=== PATIENT | male | born 1955 | race Caucasian/White ===

== ENCOUNTER 2017-08-09 14:21 | Outpatient (CLI) | payer OTHER | END 2017-08-09 14:33 | disposition home or self-care (01) | LOC: LAB 14:21 | DX: N39.0 Urinary tract infection, site not specified (principal); R82.79 Other abnormal findings on microbiological examination of urine ==

== ENCOUNTER 2023-06-04 12:30 | Inpatient (IN) | payer OTHER ==
[~2023-06-04] VITALS: Ht 152.4 cm; Wt 89.8 kg
[2023-06-05] MEDS ORDERED: LOSARTAN-HCTZ1 EAC1 PO (07:56)
[2023-06-05] MEDS ORDERED: SYNJARDY 12.5-1 EACH PO (07:56)
[2023-06-05] MEDS ORDERED: MOUNJARO10 MG/0.5 (07:56)
[2023-06-05] MEDS ORDERED: LOVAZA1 GM PO (07:57)
[2023-06-05] MEDS ORDERED: CRESTOR20 MG PO (07:57)
[2023-06-12] MEDS ORDERED: METRONIDAZOLE/SODIUM CHLORIDE 500 MG/100 ML PIGGYBACK IV ONE ×2 (06:38→09:00)
[2023-06-12] MEDS ORDERED: CEFTRIAXONE SODIUM 2,000 MG VIAL ONE (06:38)
[2023-06-12] MEDS ORDERED: LIDOCAINE HCL 1%/Epi 20ML VIAL IJ ONE ×2 (06:38→09:00)
[2023-06-12] MEDS ORDERED: BUPIVACAINE HCL/PF 0.25% 30ML VIAL InF ONE (06:39)
[2023-06-12] MEDS ORDERED: HUMULIN 70100 UNIT/2 (07:51)
[2023-06-12] MEDS ORDERED: CEFTRIAXONE SODIUM 2,000 MG VIAL IV ONE (09:00)
[2023-06-12] MEDS ORDERED: BUPIVACAINE HCL 30 ML VIAL IJ ONE (09:00)
[2023-06-12] MEDS ORDERED: SUGAMMADEX SODIUM 200 MG/2 ML VIAL IV ONE (10:30)
[2023-06-12] MEDS ORDERED: MORPHINE SULFATE 4 MG/ML CARTRIDGE IV PRN (11:00)
[2023-06-12] MEDS ORDERED: RINGERS SOLUTION,LACTATED 1,000 ML IV SCH (11:00)
[2023-06-12] MEDS ORDERED: ONDANSETRON HCL 2 MG/ML VIAL IV PRN (11:00)
[2023-06-12] MEDS ORDERED: OxyCODONE HCL 5 MG TABLET (ROXICODONE) PO PRN (11:00)
[2023-06-12] MEDS ORDERED: INSULIN LISPRO 1,000 UNIT/10 ML UNITS SUBCUTANEO PRN (11:30)
[2023-06-12] MEDS ORDERED: hydrALAZINE HCL 20 MG VIAL IV PRN (11:30)
[2023-06-12] MEDS ORDERED: DEXTROSE 50 % IN WATER 0.5 G/ML DISP.SYRIN IV PRN (11:30)
[2023-06-12] MEDS ORDERED: HYOSCYAMINE SULFATE 0.125 MG TAB.SUBL SL SCH (13:00)
[2023-06-12] MEDS ORDERED: SIMETHICONE 125 MG CAPSULE PO SCH (13:00)
[2023-06-12] MEDS ORDERED: ACETAMINOPHEN 500 MG GEL..CAP PO SCH (14:00)
[2023-06-12 15:35] LABS: HEMATOCRIT 25.5 % (39.0-48.0); MEAN CELL VOLUME 84.4 fL (80.0-100.00); MEAN CORPUSCULAR HGB CONC 33.2 g/dl (32.0-36.0); PLATELET COUNT 417 K/uL (150-450); RED BLOOD COUNT 3.02 M/uL (4.00-6.00)
[2023-06-12 15:36] LABS: HEMOGLOBIN 8.5 g/dL (13-16.00); MEAN CORPUSCULAR HEMOGLOBIN 28.1 pg (27.00-32.0)
[2023-06-12] MEDS ORDERED: SOD FERRIC GLUC COMPLX/SUCROSE 62.5 MG/5 ML AMPUL IV ONE (16:30)
[2023-06-12] MEDS ORDERED: AMINOCAPROIC ACID 250 MG/ML VIAL IV ONE ×3 (16:30→23:33)
[2023-06-12] MEDS ORDERED: POLYETHYLENE GLYCOL 3350 17 GM BLIST.PACK PO SCH (17:00)
[2023-06-12] MEDS ORDERED: GABAPENTIN 300 MG CAPSULE PO SCH (17:00)
[2023-06-12] MEDS ORDERED: CELECOXIB 200 MG CAPSULE PO SCH (17:00)
[2023-06-12] MEDS ORDERED: METOCLOPRAMIDE HCL 5 MG/ML VIAL IV SCH (17:00)
[2023-06-12] MEDS ORDERED: 0.9 % SODIUM CHLORIDE 1,000 ML IV SCH (17:15)
[2023-06-12] MEDS ORDERED: HETASTARCH IN 0.9 % NACL 500 ML PLAST..BAG IV ONE (17:30)
[2023-06-12] MEDS ORDERED: GABAPENTIN 300 MG CAPSULE PO ONE (17:38)
[2023-06-12] MEDS ORDERED: SIMETHICONE 125 MG CAPSULE PO ONE (17:39)
[2023-06-12] MEDS ORDERED: HYOSCYAMINE SULFATE 0.125 MG TAB.SUBL ONE (17:39)
[2023-06-12] MEDS ORDERED: METOCLOPRAMIDE HCL 5 MG/ML VIAL ONE (17:39)
[2023-06-12] MEDS ORDERED: ACETAMINOPHEN 500 MG GEL..CAP PO ONE (19:46)
[2023-06-12] MEDS ORDERED: FAMOTIDINE/PF 20 MG/2 ML VIAL IV PUSH SCH (21:00)
[2023-06-12] MEDS ORDERED: INSULIN LISPRO 1,000 UNIT/10 ML UNITS SUBCUTANEO ONE (21:29)
[2023-06-13] MEDS ORDERED: AMINOCAPROIC ACID 250 MG/ML VIAL IV SCH
[2023-06-13] MEDS ORDERED: METOCLOPRAMIDE HCL 5 MG/ML VIAL ONE (01:38)
[2023-06-13] MEDS ORDERED: GABAPENTIN 300 MG CAPSULE PO ONE (01:38)
[2023-06-13] MEDS ORDERED: ACETAMINOPHEN 500 MG GEL..CAP PO ONE ×2 (01:38→12:34)
[2023-06-13 08:26] LABS: MEAN CELL VOLUME 82.9 fL (80.0-100.00); MEAN CORPUSCULAR HGB CONC 34.9 g/dl (32.0-36.0)
[2023-06-13] MEDS ORDERED: LACTOBACILLUS ACIDOPHILUS 1 CAP CAP PO SCH (09:00)
[2023-06-13] MEDS ORDERED: LOSARTAN/HYDROCHLOROTHIAZIDE 1 UDTAB TABLET PO SCH (09:00)
[2023-06-13] MEDS ORDERED: SOD FERRIC GLUC COMPLX/SUCROSE 62.5 MG in 0.9 % SODIUM CHLORIDE 50 ML IV SCH (09:00)
[2023-06-13] MEDS ORDERED: LACTULOSE 20 G/30 ML BLIST.PACK PO SCH (09:00)
[2023-06-13 09:07] LABS: HEMATOCRIT 16.6 % (39.0-48.0); HEMOGLOBIN 5.8 g/dL (13-16.00); PLATELET COUNT 207 K/uL (150-450)
[2023-06-13] MEDS ORDERED: INSULIN LISPRO 1,000 UNIT/10 ML UNITS SUBCUTANEO ONE ×3 (09:12→16:14)
[2023-06-13 09:22] LABS: CALCIUM 7.2 mg/dL (8.5-10.1); CREATININE SERUM 1.54 mg/dL (0.70-1.30); GFR 45.15; MAGNESIUM 1.7 mg/dL (1.8-2.4); POTASSIUM 4.13 mEq/L (3.5-5.1)
[2023-06-13] MEDS ORDERED: MAGNESIUM SULFATE IN WATER 50 ML IV ONE (09:30)
[2023-06-13] MEDS ORDERED: NOREPINEPHRINE BITARTRATE 4 MG in DEXTROSE 5 % IN WATER 250 ML IV SCH (09:30)
[2023-06-13] MEDS ORDERED: SOD FERRIC GLUC COMPLX/SUCROSE 62.5 MG/5 ML AMPUL IV SCH (10:03)
[2023-06-13] MEDS ORDERED: Cyanocobalamin/Mecobalamin 1 TAB.SL SL SCH (10:09)
[2023-06-13] MEDS ORDERED: VITAMIN B COMPLEX 1 EACH PO SCH (10:09)
[2023-06-13] MEDS ORDERED: IRON FUM,PS/FOLIC ACID/VITC/B3 1 CAP CAPSULE PO SCH (10:09)
[2023-06-13] MEDS ORDERED: EPOETIN ALFA-EPBX 10,000 UNIT/ML VIAL (Retacrit) SUBCUTANEO SCH (10:15)
[2023-06-13] MEDS ORDERED: SOD FERRIC GLUC COMPLX/SUCROSE 62.5 MG/5 ML AMPUL IV ONE (10:30)
[2023-06-13] MEDS ORDERED: MULTIVIT INFUSN,ADULT 4,VIT K 10 ML VIAL IV SCH (11:20)
[2023-06-13] MEDS ORDERED: EPOETIN ALFA-EPBX 10,000 UNIT/ML 2ML VIAL SUBCUTANEO SCH (12:00)
[2023-06-13] MEDS ORDERED: EMOLLIENT COMBINATION NO.92 2.5 OZ BOTTLE TOP SCH (13:00)
[2023-06-13] MEDS ORDERED: INSULIN REGULAR, HUMAN 1,000 UNIT/10 ML UNITS ONE ×2 (16:32→17:49)
[2023-06-13] MEDS ORDERED: INSULIN REGULAR, HUMAN 1,000 UNIT/10 ML UNITS IV STA ×2 (16:35→19:27)
[2023-06-13] MEDS ORDERED: HYOSCYAMINE SULFATE 0.125 MG TAB.SUBL ONE (16:42)
[2023-06-13] MEDS ORDERED: ENOXAPARIN SODIUM 40 MG/0.4 ML SYRINGE SUBCUTANEO SCH (17:00)
[2023-06-13] MEDS ORDERED: PATIENTS OWN MEDICATION (MEDICAMENTO EN PISO) PO SCH (17:00)
[2023-06-13] MEDS ORDERED: INSULIN NPH HUMAN ISOPHANE 1,000 UNITS/10 ML UNITS SUBCUTANEO ONE (19:07)
[2023-06-13] MEDS ORDERED: INSULIN NPH HUMAN ISOPHANE 1,000 UNITS/10 ML UNITS SUBCUTANEO STA (19:31)
[2023-06-13] MEDS ORDERED: INSULIN LISPRO 1,000 UNIT/10 ML UNITS SUBCUTANEO PRN (21:45)
[2023-06-14] MEDS ORDERED: INSULIN LISPRO 1,000 UNIT/10 ML UNITS SUBCUTANEO PRN ×2 (06:15→09:00)
[2023-06-14] MEDS ORDERED: DEXTROSE 50 % IN WATER 0.5 G/ML DISP.SYRIN IV PRN (06:15)
[2023-06-14 07:20] LABS: CALCIUM 6.9 mg/dL (8.5-10.1); CREATININE SERUM 0.88 mg/dL (0.70-1.30); GFR 86.12; PHOSPHOROUS 2.8 mg/dL (2.5-4.9)
[2023-06-14 07:22] LABS: MAGNESIUM 2.3 mg/dL (1.8-2.4); POTASSIUM 4.18 mEq/L (3.5-5.1)
[2023-06-14] MEDS ORDERED: INSULIN NPH HUM/REG INSULIN HM 1,000 UNIT/10 ML UNITS SUBCUTANEO STA (08:36)
[2023-06-14] MEDS ORDERED: SOD FERRIC GLUC COMPLX/SUCROSE 62.5 MG/5 ML AMPUL IV SCH (09:00)
[2023-06-14] MEDS ORDERED: ENOXAPARIN SODIUM 40 MG/0.4 ML SYRINGE SUBCUTANEO SCH (09:00)
[2023-06-14] MEDS ORDERED: CHLORHEXIDINE GLUCONATE 120 ML BOTTLE TOP ONE (11:51)
[2023-06-14] MEDS ORDERED: CYANOCOBALAMIN (VITAMIN B-12) 1,000 MCG/ML VIAL IM SCH (12:40)
[2023-06-14] MEDS ORDERED: INSULIN NPH HUM/REG INSULIN HM 1,000 UNIT/10 ML UNITS SUBCUTANEO SCH (17:00)
[2023-06-14 18:13] LABS: MEAN CELL VOLUME 82.7 fL (80.0-100.00); MEAN CORPUSCULAR HGB CONC 33.7 g/dl (32.0-36.0); PLATELET COUNT 325 K/uL (150-450); RED BLOOD COUNT 1.78 M/uL (4.00-6.00); RED CELL DISTRIBUTION WIDTH 16.8 % (11.5-14.5)
[2023-06-14 18:18] LABS: HEMATOCRIT 14.7 % (39.0-48.0)
[2023-06-14] MEDS ORDERED: PIPERACILLIN/TAZOBACTAM SODIUM 3.375 GM in 0.9 % SODIUM CHLORIDE 100 ML IV SCH (18:21)
[2023-06-15] MEDS ORDERED: INSULIN NPH HUM/REG INSULIN HM 1,000 UNIT/10 ML UNITS SUBCUTANEO SCH (08:00)
[2023-06-16] MEDS ORDERED: INSULIN NPH HUM/REG INSULIN HM 1,000 UNIT/10 ML UNITS SUBCUTANEO SCH ×2 (08:00→17:00)
[2023-06-17 07:37] LABS: MEAN CORPUSCULAR HGB CONC 33.3 g/dl (32.0-36.0); PLATELET COUNT 434 K/uL (150-450); RED BLOOD COUNT 2.04 M/uL (4.00-6.00); RED CELL DISTRIBUTION WIDTH 17.3 % (11.5-14.5)
[2023-06-17 07:39] LABS: HEMATOCRIT 17.3 % (39.0-48.0); HEMOGLOBIN 5.8 g/dL (13-16.00); MEAN CORPUSCULAR HEMOGLOBIN 28.4 pg (27.00-32.0)
[2023-06-17 08:30] LABS: ALBUMIN 1.6 gm/dL (3.4-5.0); BILIRUBIN TOTAL 0.57 mg/dL (0.3-1.2); CALCIUM 7.4 mg/dL (8.5-10.1); CREATININE SERUM 0.69 mg/dL (0.70-1.30); GFR 114.02; GLOBULINA 2.7 G/DL (2.4-3.5); MAGNESIUM 1.9 mg/dL (1.8-2.4); POTASSIUM 3.69 mEq/L (3.5-5.1); TOTAL PROTEIN 4.3 gm/dL (6.4-8.2)
[2023-06-17] MEDS ORDERED: EPOETIN ALFA-EPBX 10,000 UNIT/ML VIAL (Retacrit) SUBCUTANEO SCH (09:00)
[2023-06-17] MEDS ORDERED: POTASSIUM PHOS,M-BASIC-D-BASIC 15 MM in 0.9 % SODIUM CHLORIDE 250 ML IV ONE (11:15)
[2023-06-18] MEDS ORDERED: INSULIN NPH HUM/REG INSULIN HM 1,000 UNIT/10 ML UNITS SUBCUTANEO SCH (08:00)
[2023-06-18] MEDS ORDERED: FUROsemide 20 MG/2 ML VIAL IV SCH (12:00)
[2023-06-18] MEDS ORDERED: ALBUMIN HUMAN-25 0.25GM/ML (50ML) VIAL IV SCH (13:00)
[2023-06-18] MEDS ORDERED: ALBUMIN HUMAN 100 ML VIAL IV SCH (13:00)
[2023-06-18] MEDS ORDERED: MORPHINE SULFATE 4 MG/ML CARTRIDGE IV ONE (20:00)
[2023-06-19] MEDS ORDERED: METOCLOPRAMIDE HCL 5 MG/ML VIAL IV SCH (01:00)
[2023-06-19] MEDS ORDERED: INSULIN NPH HUM/REG INSULIN HM 1,000 UNIT/10 ML UNITS SUBCUTANEO SCH ×2 (08:00→17:00)
[2023-06-19] MEDS ORDERED: AMINO ACIDS/PROTEIN HYDROLYS 30 ML BLIST.PACK PO SCH (11:34)
[2023-06-20 06:34] LABS: MEAN CELL VOLUME 87.4 fL (80.0-100.00); MEAN CORPUSCULAR HGB CONC 33.3 g/dl (32.0-36.0); PLATELET COUNT 513 K/uL (150-450); RED BLOOD COUNT 1.83 M/uL (4.00-6.00)
[2023-06-20 06:37] LABS: MEAN CORPUSCULAR HEMOGLOBIN 28.9 pg (27.00-32.0); RED CELL DISTRIBUTION WIDTH 20.8 % (11.5-14.5)
[2023-06-20 06:38] LABS: HEMOGLOBIN 5.3 g/dL (13-16.00)
[2023-06-20 07:18] LABS: CALCIUM 7.6 mg/dL (8.5-10.1); CREATININE SERUM 0.96 mg/dL (0.70-1.30); GFR 77.89; MAGNESIUM 1.9 mg/dL (1.8-2.4); PHOSPHOROUS 2.6 mg/dL (2.5-4.9); POTASSIUM 3.42 mEq/L (3.5-5.1)
[2023-06-20] MEDS ORDERED: POTASSIUM CHLORIDE 20MEQ/100ML H2O PB IV ONE (07:30)
[2023-06-20] MEDS ORDERED: INSULIN NPH HUM/REG INSULIN HM 1,000 UNIT/10 ML UNITS SUBCUTANEO SCH ×2 (08:00→17:00)
[2023-06-20] MEDS ORDERED: FUROsemide 20 MG/2 ML VIAL IV SCH (09:00)
[2023-06-20] MEDS ORDERED: DIATRIZOATE MEGLUMINE, SODIUM 30 ML BOTTLE PO ONE (16:00)
[2023-06-20] MEDS ORDERED: AA 4.25%/CAL/LYTES/DEXT 5% 1,000 ML PERIFERAL SCH (17:00)
[2023-06-20] MEDS ORDERED: MEROPENEM 500 MG/VIAL VIAL IV SCH (18:00)
[2023-06-20 18:39] LABS: URINE APPEARANCE Turbid; URINE BILIRRUBIN Negative (NEGATIVE); URINE BLOOD Small; URINE COLOR Yellow; URINE LEUKOCYTE Negative; URINE NITRATE Negative; URINE PROTEIN 30 (NEGATIVE); URINE UROBILINOGEN 0.2 E.U./dl
[2023-06-20 18:42] LABS: URINE BACTERIA 211.6 uL (0.0-1933); URINE EPITHELIAL CELLS 28.6 uL (0.0-38.8); URINE RBC 33.5 uL (0.0-20.8); URINE WBC 41.4 uL (0.0-23.2)
[2023-06-20 19:18] LABS: URINE CRYSTALS MODERATE /HPF; URINE GLUCOSE 250 MG/DL (NEGATIVE); URINE MUCUS SCANT
[2023-06-21] MEDS ORDERED: INSULIN NPH HUM/REG INSULIN HM 1,000 UNIT/10 ML UNITS SUBCUTANEO SCH (08:00)
[2023-06-21] MEDS ORDERED: ASCORBIC ACID 500 MG TABLET PO SCH (12:04)
[2023-06-21] MEDS ORDERED: EPOETIN ALFA-EPBX 10,000 UNIT/ML 2ML VIAL SUBCUTANEO SCH (17:00)
[2023-06-22 10:25] LABS: MEAN CELL VOLUME 89.2 fL (80.0-100.00); MEAN CORPUSCULAR HGB CONC 32.2 g/dl (32.0-36.0); RED BLOOD COUNT 2.28 M/uL (4.00-6.00); RED CELL DISTRIBUTION WIDTH 22.8 % (11.5-14.5)
[2023-06-22 10:44] LABS: CALCIUM 7.9 mg/dL (8.5-10.1); CREATININE SERUM 0.8 mg/dL (0.70-1.30); GFR 96.13; MAGNESIUM 1.8 mg/dL (1.8-2.4); PHOSPHOROUS 2.3 mg/dL (2.5-4.9); POTASSIUM 3.41 mEq/L (3.5-5.1)
[2023-06-22 10:53] LABS: HEMATOCRIT 20.3 % (39.0-48.0); MEAN CORPUSCULAR HEMOGLOBIN 28.9 pg (27.00-32.0); PLATELET COUNT 667 K/uL (150-450)
[2023-06-22 12:01] LABS: HEMOGLOBIN 6.6 g/dL (13-16.00)
[2023-06-22] MEDS ORDERED: ALBUMIN HUMAN 5% 0.05GM/ML (250ML) VIAL IV SCH (12:52)
[2023-06-22] MEDS ORDERED: POTASSIUM CHLORIDE 20MEQ/100ML H2O PB IV ONE (13:00)
[2023-06-22] MEDS ORDERED: ALBUMIN HUMAN-25 0.25GM/ML (50ML) VIAL IV SCH (17:00)
[2023-06-23] MEDS ORDERED: INSULIN NPH HUM/REG INSULIN HM 1,000 UNIT/10 ML UNITS SUBCUTANEO SCH ×2 (08:00→17:00)
[2023-06-23] MEDS ORDERED: CYANOCOBALAMIN (VITAMIN B-12) 1,000 MCG/ML VIAL IM SCH (09:00)
[2023-06-25 07:02] LABS: MEAN CELL VOLUME 89.3 fL (80.0-100.00); MEAN CORPUSCULAR HGB CONC 33.8 g/dl (32.0-36.0); PLATELET COUNT 613 K/uL (150-450); RED BLOOD COUNT 2.03 M/uL (4.00-6.00); RED CELL DISTRIBUTION WIDTH 23.6 % (11.5-14.5)
[2023-06-25 07:04] LABS: CALCIUM 7.4 mg/dL (8.5-10.1); CREATININE SERUM 0.69 mg/dL (0.70-1.30); GFR 114.02; MAGNESIUM 1.6 mg/dL (1.8-2.4); PHOSPHOROUS 2.1 mg/dL (2.5-4.9); POTASSIUM 3.55 mEq/L (3.5-5.1)
[2023-06-25 07:08] LABS: HEMATOCRIT 18.1 % (39.0-48.0); HEMOGLOBIN 6.1 g/dL (13-16.00)
[2023-06-25] MEDS ORDERED: MAGNESIUM SULFATE IN WATER 50 ML IV ONE (08:00)
[2023-06-25] MEDS ORDERED: POTASSIUM PHOS,M-BASIC-D-BASIC 3 MM/ML VIAL IV ONE (12:00)
[2023-06-25] MEDS ORDERED: GABAPENTIN 100 MG CAPSULE PO SCH (17:00)
[2023-06-25] MEDS ORDERED: GABAPENTIN 300 MG CAPSULE PO SCH (21:00)
[2023-06-26] MEDS ORDERED: FAMOtidine 20 MG TABLET PO SCH (09:00)
[2023-06-26] MEDS ORDERED: LOSARTAN POTASSIUM 50 MG TABLET PO SCH (09:00)
[2023-06-27] MEDS ORDERED: INSULIN NPH HUM/REG INSULIN HM 1,000 UNIT/10 ML UNITS SUBCUTANEO SCH (08:00)
[2023-06-28 06:36] LABS: CALCIUM 8.2 mg/dL (8.5-10.1); CREATININE SERUM 0.61 mg/dL (0.70-1.30); GFR 131.45; MAGNESIUM 1.9 mg/dL (1.8-2.4); PHOSPHOROUS 2.9 mg/dL (2.5-4.9); POTASSIUM 4.1 mEq/L (3.5-5.1)
[2023-06-28 09:39] LABS: MEAN CELL VOLUME 89.9 fL (80.0-100.00); MEAN CORPUSCULAR HGB CONC 33.2 g/dl (32.0-36.0); PLATELET COUNT 763 K/uL (150-450); RED BLOOD COUNT 2.45 M/uL (4.00-6.00); RED CELL DISTRIBUTION WIDTH 23.8 % (11.5-14.5)
[2023-06-28 09:45] LABS: MEAN CORPUSCULAR HEMOGLOBIN 29.7 pg (27.00-32.0)
[2023-06-28 09:46] LABS: HEMOGLOBIN 7.3 g/dL (13-16.00)
[2023-06-28] MEDS ORDERED: INSULIN NPH HUM/REG INSULIN HM 1,000 UNIT/10 ML UNITS SUBCUTANEO SCH (17:00)
[2023-06-28] MEDS ORDERED: GABAPENTIN300 MG PO (17:48)
[2023-06-28] MEDS ORDERED: HYOSCYAMINE0.125 M1 SL (17:48)
[2023-06-28] MEDS ORDERED: VITAMIN C500 M1 PO (17:48)
[2023-06-28] MEDS ORDERED: PROTEINEX-18 LI30 ML PO (17:48)
[2023-06-28] MEDS ORDERED: FAMOTIDINE20 MG PO (17:48)
[2023-06-28] MEDS ORDERED: CRESTOR20 MG PO (17:48)
[2023-06-28] MEDS ORDERED: GABAPENTIN100 MG PO (17:48)
[2023-06-28] MEDS ORDERED: COZAAR50 MG PO (17:48)
[2023-06-28] MEDS ORDERED: ABANEU-SL TABL1 EACH SL (17:48)
[2023-06-28] MEDS ORDERED: B COMPLEX1 EACH PO (17:48)
[2023-06-28] MEDS ORDERED: POLY119PG PO (17:48)
[2023-06-28] MEDS ORDERED: RETACRIT SUBCUTANEO (17:48)
[2023-06-28] MEDS ORDERED: INTEGRA F CAPS1 EACH PO (17:48)
[2023-06-28] MEDS ORDERED: CYANOCOBAL1000 MCG/1 IM (17:48)
[2023-06-28] MEDS ORDERED: POLYETHYLENE GLYCOL 3350 17 GM BLIST.PACK PO SCH (21:00)
[2023-06-29] MEDS ORDERED: INSULIN NPH HUM/REG INSULIN HM 1,000 UNIT/10 ML UNITS SUBCUTANEO SCH (08:00)
[2023-06-29] MEDS ORDERED: SOD FERRIC GLUC COMPLX/SUCROSE 62.5 MG/5 ML AMPUL IV SCH (09:00)
== END 2023-06-28 21:20 | disposition home or self-care (01) | DRG 330 ==
LOC: SURH 06-12 05:15 → O/R 06-12 05:15 → SURG 06-12 10:30 → SURH 06-12 12:27 → SURG 06-12 12:30 → SURH 06-12 20:19 → O/R 06-13 07:35 → ICU 06-13 19:33 → MEDI 06-25 21:08
PROVIDERS: Internal Medicine Geriatric Medicine; Internal Medicine Infectious Disease; Internal Medicine Nephrology; ADMIT Colon & Rectal Surgery; ATTEND Colon & Rectal Surgery
PROC: 07BB4ZZ Excision of Mesenteric Lymphatic, Percutaneous Endoscopic Approach (ICD-10-PCS; 2023-06-12)
PROC: 0DTF4ZZ Resection of Right Large Intestine, Percutaneous Endoscopic Approach (ICD-10-PCS; principal; 2023-06-12 10:30)
PROC: BW21YZZ Computerized Tomography (CT Scan) of Abdomen and Pelvis using Other Contrast (ICD-10-PCS; 2023-06-20)
PROC: BT4JZZZ Ultrasonography of Kidneys and Bladder (ICD-10-PCS; 2023-06-26)
PROC: 4A12X4Z Monitoring of Cardiac Electrical Activity, External Approach (ICD-10-PCS; 2023-06-26)
DX: C78.5 Secondary malignant neoplasm of large intestine and rectum (principal); C78.7 Secondary malignant neoplasm of liver and intrahepatic bile duct; K92.1 Melena; E46 Unspecified protein-calorie malnutrition; N17.9 Acute kidney failure, unspecified; D62 Acute posthemorrhagic anemia; K91.89 Other postprocedural complications and disorders of digestive system; K56.7 Ileus, unspecified; K59.09 Other constipation; E11.65 Type 2 diabetes mellitus with hyperglycemia; Z79.4 Long term (current) use of insulin; Z53.1 Procedure and treatment not carried out because of patient's decision for reasons of belief and group pressure; I12.9 Hypertensive chronic kidney disease with stage 1 through stage 4 chronic kidney disease, or unspecified chronic kidney disease; E11.22 Type 2 diabetes mellitus with diabetic chronic kidney disease; N18.9 Chronic kidney disease, unspecified; D75.839 Thrombocytosis, unspecified

== ENCOUNTER 2023-07-07 14:18 | Emergency (ER) | payer OTHER ==
[~2023-07-07] VITALS: Ht 177.8 cm; Wt 89.8 kg
[~2023-07-07 14:18] MED LIST: ABANEU-SL TABL1 EACH SL; B COMPLEX1 EACH PO; COZAAR50 MG PO; CRESTOR20 MG PO; CYANOCOBAL1000 MCG/1 IM; FAMOTIDINE20 MG PO; GABAPENTIN100 MG PO; GABAPENTIN300 MG PO; HUMULIN 70100 UNIT/2; HYOSCYAMINE0.125 M1 SL; INTEGRA F CAPS1 EACH PO; LOSARTAN-HCTZ1 EAC1 PO; LOVAZA1 GM PO; MOUNJARO10 MG/0.5; POLY119PG PO; PROTEINEX-18 LI30 ML PO; RETACRIT SUBCUTANEO; SYNJARDY 12.5-1 EACH PO; VITAMIN C500 M1 PO
[2023-07-07] MEDS ORDERED: FAMOtidine 10 MG/ML (4ML VIAL) IV STA (15:34)
[2023-07-07] MEDS ORDERED: ONDANSETRON HCL 2 MG/ML VIAL IV ONE (15:45)
[2023-07-07 16:09] LABS: HEMATOCRIT 31.3 % (39.0-48.0); MEAN CELL VOLUME 92.7 fL (80.0-100.00); MEAN CORPUSCULAR HEMOGLOBIN 30.2 pg (27.00-32.0); MEAN CORPUSCULAR HGB CONC 32.5 g/dl (32.0-36.0); PLATELET COUNT 527 K/uL (150-450); RED BLOOD COUNT 3.37 M/uL (4.00-6.00); RED CELL DISTRIBUTION WIDTH 22.5 % (11.5-14.5)
[2023-07-07 16:32] LABS: HEMOGLOBIN 10.2 g/dL (13-16.00)
[2023-07-07 16:47] LABS: ALBUMIN 3.1 gm/dL (3.4-5.0); BILIRUBIN TOTAL 0.78 mg/dL (0.3-1.2); BILIRUBIN,CONJUGATED 0.2 mg/dL (0.0-0.2); BILIRUBIN,UNCONJUGATED 0.58 mg/dL (0.0-0.6); CALCIUM 8.8 mg/dL (8.5-10.1); CREATININE SERUM 0.82 mg/dL (0.70-1.30); GFR 93.43; POTASSIUM 3.96 mEq/L (3.5-5.1); TOTAL PROTEIN 7.9 gm/dL (6.4-8.2)
[2023-07-07 17:05] LABS: PH,URINE 5.5 (5.0-8.0); URINE APPEARANCE Clear; URINE BILIRRUBIN Negative (NEGATIVE); URINE BLOOD Negative; URINE COLOR Yellow; URINE LEUKOCYTE Negative; URINE NITRATE Negative; URINE PROTEIN 30 (NEGATIVE); URINE UROBILINOGEN 0.2 E.U./dl
[2023-07-07 17:08] LABS: URINE BACTERIA 23.9 uL (0.0-1933); URINE EPITHELIAL CELLS 1.5 uL (0.0-38.8); URINE RBC 5.3 uL (0.0-20.8); URINE WBC 2.1 uL (0.0-23.2)
[2023-07-07 17:49] LABS: URINE GLUCOSE >=1000 MG/DL (NEGATIVE)
== END 2023-07-07 19:48 | disposition home or self-care (01) ==
LOC: ER 14:18
PROVIDERS: General Practice
DX: R10.9 Unspecified abdominal pain (principal); Z85.038 Personal history of other malignant neoplasm of large intestine; E78.00 Pure hypercholesterolemia, unspecified; I10 Essential (primary) hypertension; E11.9 Type 2 diabetes mellitus without complications; Z79.4 Long term (current) use of insulin